=== PATIENT | female | born 1990 | race Caucasian/White ===

== ENCOUNTER → 2023-10-07 12:40 | Outpatient (REF) | payer OTHER, SELFPAY | LOC: RAD 12:40 | PROVIDERS: ATTENDING PHYSICIAN Nurse Practitioner Family; FAMILY PHYSICIAN Family Medicine | DX: R10.2 Pelvic and perineal pain (principal) | CPT/HCPCS: 76830; 76856 ==

== ENCOUNTER → 2023-10-18 14:09 | Outpatient (REF) | payer OTHER, SELFPAY | LOC: MRI 3T 14:09 | PROVIDERS: ATTENDING PHYSICIAN Nurse Practitioner Family; FAMILY PHYSICIAN Family Medicine | DX: N83.209 Unspecified ovarian cyst, unspecified side (principal) | CPT/HCPCS: 72197; A9575 ==